=== PATIENT | male | born 1995 | race American Indian/Alaskan Native ===

== ENCOUNTER 2019-04-16 19:23 | Emergency (ER) | payer MEDICAID ==
[2019-04-16] MEDS ORDERED: EPINEPHRINE 1MG/ML AMP ONE (19:30)
[2019-04-16] MEDS ORDERED: BENADRYL 50 MG/ML ONE (19:30)
[2019-04-16] MEDS ORDERED: solu-MEDROL 125 MG ONE (19:30)
[2019-04-16] MEDS ORDERED: Sodium Chloride 0.9% 1000 ML 1,000 ML IV STA (19:31)
[2019-04-16] MEDS ORDERED: Pepcid 20 MG VIAL IV ONE ×2 (19:31→19:49)
[2019-04-16] MEDS ORDERED: EPINEPHRINE 1MG/ML AMP IM ONE (19:31)
[2019-04-16] MEDS ORDERED: BENADRYL 50 MG/ML IV ONE ×2 (19:31→19:34)
[2019-04-16] MEDS ORDERED: solu-MEDROL 125 MG IV ONE (19:33)
--- NOTE | 2019-04-16 19:48 | ERPHSYRPT ---
- History of Present Illness Time Seen by Provider: 04/16/19 19:30 Source: patient Exam Limitations: clinical condition Physician History: PATIENT COMPLAINS OF ACUTE ONSET OF GENERALIZED ITCHING AND HIVES OVER SKIN AFTER BEING STUNG BY WASP OVER LEFT FOOT. DENIES DIFFICULTY BREATHING OR SWALLOWING Timing/Duration: today Quality: itchy, painful Severity: severe Location: generalized Possible Causes: insect sting Modifying Factors: Improves With: other (NOTHING) Associated Symptoms: change in skin texture, edema Allergies/Adverse Reactions: bee venom protein (honey bee) Allergy (Verified 04/16/19 19:48) hornet venom Allergy (Verified 04/16/19 19:48) - Review of Systems Constitutional: No Symptoms Eyes: No Symptoms Ears, Nose, & Throat: No Symptoms, Throat Swelling Cardiac: Orthopnea Musculoskeletal: No Symptoms Skin: Rash, Skin Lesions Psychological: No Symptoms Endocrine: No Symptoms - Nursing Vital Signs Nursing Vital Signs: Initial Vital Signs Temperature 98.1 F 04/16/19 19:38 Pulse Rate 72 04/16/19 19:38 Respiratory Rate 22 04/16/19 19:38 Blood Pressure 159/78 04/16/19 19:38 O2 Sat by Pulse Oximetry 99 04/16/19 19:38 Pain Scale Pain Intensity 10 - Physical Exam General Appearance: mild distress Eye Exam: PERRL/EOMI Ears, Nose, Throat Exam: normal ENT inspection, TM abnormal (L), other (NO PHARYNGEAL EDEMA) Respiratory Exam: normal breath sounds Cardiovascular Exam: regular rate/rhythm, normal heart sounds Gastrointestinal/Abdomen Exam: soft, normal bowel sounds Back Exam: normal inspection Extremity Exam: normal inspection Neurologic Exam: alert, oriented x 3 Skin Exam: normal color, other (HIVES OVER ROMO) SpO2 Interpretation: normal SpO2: 98 Ordered Tests: Medication Summary Discontinued Medications Generic Name Dose Route Start Last Admin Trade Name Freq PRN Reason Stop Dose Admin Diphenhydramine HCl Confirm 04/16/19 19:30 Benadryl 50 Mg/Ml Administered 04/16/19 19:31 Dose 100 mg .ROUTE .STK-MED ONE Diphenhydramine HCl 75 mg 04/16/19 19:31 04/16/19 19:48 Benadryl 50 Mg/Ml IV 04/16/19 19:32 75 mg STAT ONE Administration Diphenhydramine HCl 25 mg 04/16/19 19:34 04/16/19 19:48 Benadryl 50 Mg/Ml IV 04/16/19 19:35 25 mg STAT ONE Administration Epinephrine HCl Confirm 04/16/19 19:30 Epinephrine 1mg/Ml Amp Administered 04/16/19 19:31 Dose 1 mg .ROUTE .STK-MED ONE Epinephrine HCl 0.3 mg 04/16/19 19:31 04/16/19 19:49 Epinephrine 1mg/Ml Amp IM 04/16/19 19:32 0.3 mg STAT ONE Administration Famotidine 20 mg 04/16/19 19:31 04/16/19 19:52 Pepcid 20 Mg Vial IV 04/16/19 19:32 20 mg STAT ONE Administration Famotidine Confirm 04/16/19 19:49 Pepcid 20 Mg Vial Administered 04/16/19 19:50 Dose 20 mg IV .STK-MED ONE Sodium Chloride 1,000 mls @ 999 mls/hr 04/16/19 19:31 04/16/19 19:52 Sodium Chloride 0.9% 1000 Ml IV 04/16/19 20:31 999 mls/hr .Q1H1M STA Administration Sodium Chloride Confirm 04/16/19 19:49 Sodium Chloride 0.9% 1000 Ml Administered 04/16/19 19:50 Dose 1,000 mls @ ud .ROUTE .STK-MED ONE Methylprednisolone Sodium Succinate Confirm 04/16/19 19:30 Solu-Medrol 125 Mg Administered 04/16/19 19:31 Dose 125 mg .ROUTE .STK-MED ONE Methylprednisolone Sodium Succinate 125 mg 04/16/19 19:33 04/16/19 19:38 Solu-Medrol 125 Mg IV 04/16/19 19:34 125 mg STAT ONE Administration - Progress Progress: improved Progress Note: 04/16/19 20:56 IV NORMAL SALINE 1 LITER/HR BENADRYL 100MG SOLUMEDROL 125MG IV, EPINEPHRINE 0.3MG 1:1000 IM Counseled pt/family regarding: diagnosis, need for follow-up - Departure Departure Disposition: Home Clinical Impression: ALLERGIC REACTION WASP STING Condition: Stable Critical Care Time: No Additional Instructions: TAKE OVER THE COUNTER BENADRYL 50MG EVERY 4 HOURS NEEDED FOR ITCHING. PREDNISONE 20MG, 2 TABLETS DAILY FOR 5 DAYS. ANTIBIOTIC AUGMENTIN 875MG TWICE DAILY FOR 10 DAYS FOR ANKLE CELLULITIS. EPIPEN 0.3MG INJECTIONS NEEDEDE FOR ONSET OF HIVES. Prescriptions: Amox Tr/Potass Clav. 875 mg [Augmentin 875-125 Tablet] 1 each PO BID #20 tablet EPINEPHrine [Epipen 0.3 MG] 0.3 mg IJ DAILY PRN PRN #2 ml PRN Reason: ALLERGIC REACTION Prednisone 20 mg [Deltasone 20 mg] 2 tab PO DAILY #10 tablet
[2019-04-16] MEDS ORDERED: Sodium Chloride 0.9% 1000 ML 1,000 ML ONE (19:49)
[2019-04-16 20:56] VITALS: BP 131/74; PULSE 78
[2019-04-16 21:00] VITALS: O2SAT 98
== END 2019-04-16 21:20 | disposition home or self-care (01) ==
LOC: ED 19:23
DX: T63.441A Toxic effect of venom of bees, accidental (unintentional), initial encounter (principal); L50.0 Allergic urticaria
CPT/HCPCS: 96360; 96372; 96374; 96375; 99284; J0171; J1200; J2930

== ENCOUNTER 2019-12-13 05:24 | Emergency (ER) | payer MEDICAID ==
[2019-12-13] MEDS ORDERED: BENADRYL 50 MG/ML IV ONE (05:45)
[2019-12-13] MEDS ORDERED: solu-MEDROL 125 MG IV ONE (05:45)
--- NOTE | 2019-12-13 05:45 | ERPHSYRPT ---
- History of Present Illness Time Seen by Provider: 12/13/19 05:39 Source: patient Exam Limitations: no limitations Patient Subjective Stated Complaint: pt states he woke up with a wasp in his trunks and it stung him on the lt thigh Triage Nursing Assessment: pt alert and oriented, answers questions approp. pt restless in bed, itching. skin warm and dry. red raised area to lt lateral thigh. Physician History: About 30 minutes ago pt was stung by a wasp on his left lateral thigh after which he began to have pruritus, nausea, vomiting x1, cough and tightness in the neck. Pt injected himself with an epi-pen about 20 minutes ago. pt denies abdominal pain, chest pain, fever. Allergies/Adverse Reactions: bee venom protein (honey bee) Allergy (Verified 04/16/19 19:48) hornet venom Allergy (Verified 04/16/19 19:48) Hx Tetanus, Diphtheria Vaccination/Date Given: Yes (November 2018) Hx Influenza Vaccination/Date Given: No Hx Pneumococcal Vaccination/Date Given: No Immunizations Up to Date: Yes Travel Risk - International Travel Have you traveled outside of the country in past 3 weeks: No Have you or anyone close to you been diagnosed with or: No Do your reside in a community with a known COVID-19 case?: Yes If Yes where:: [facility] - Coronavirus Screening Has patient experienced Coronavirus symptoms: Yes Symptoms experienced: respiratory symptoms (i.e.Cought,shortness of breath) Date of respiratory symptoms onset:: 12/13/19 (cough about 30 minutes ago.) - Review of Systems Constitutional: No Fever Ears, Nose, & Throat: Throat Swelling, No Throat Pain Respiratory: Cough Cardiac: No Chest Pain Abdominal/Gastrointestinal: Nausea, Vomiting, No Abdominal Pain Skin: Pruritis, No Rash Neurological: No Headache All Other Systems: Reviewed and Negative - Past Medical History Pertinent Past Medical History: No - Past Surgical History Past Surgical History: No - Social History Smoking Status: Former smoker Exposure to second hand smoke: No Drug Use: none Patient Lives Alone: Yes - Nursing Vital Signs Nursing Vital Signs: Initial Vital Signs Temperature 97.7 F 12/13/19 05:30 Pulse Rate 73 12/13/19 05:30 Respiratory Rate 20 12/13/19 05:30 Blood Pressure 143/77 12/13/19 05:30 O2 Sat by Pulse Oximetry 97 12/13/19 05:30 Pain Scale Pain Intensity 0 - Physical Exam General Appearance: alert Eye Exam: PERRL/EOMI Ears, Nose, Throat Exam: TMs normal, pharynx normal, moist mucous membranes Neck Exam: normal inspection Respiratory Exam: lungs clear Cardiovascular Exam: normal heart sounds Gastrointestinal/Abdomen Exam: soft, normal bowel sounds Back Exam: normal inspection Extremity Exam: swelling (mild edema and erythema surrounding a bite dorothy on left lateral thigh mid aspect.) Neurologic Exam: alert, cooperative Skin Exam: other (old healing guevara on left shoulder; old healing linear abrasions on right thigh. pt denies suicidal/homicidal thoughts. pt states these injuries occurred 1.5 months ago and since has had an inpatient community hospital stay. ), No cyanosis SpO2 Interpretation: normal SpO2: 97 O2 Delivery: Room Air - Course Nursing assessment & vital signs reviewed: Yes Ordered Tests: Active Orders 24 hr Category Date Time Status IV Insertion STAT Care 12/13/19 05:45 Ordered - Progress Progress: improved Progress Note: 12/13/19 06:10 pt states he feels better. - Departure Departure Disposition: Home Clinical Impression: allergic reaction to wasp venom Condition: Stable Critical Care Time: No Referrals: Provider,Unknown [NON-STAFF PHY W/O PRIVILEGES] - Instructions: Insect Bites and Stings (DC) Additional Instructions: Follow up with private doctor tomorrow. Forms: Work/School Release Form Prescriptions: Hydroxyzine HCl 25 mg [Atarax 25 mg] 25 mg PO Q4H PRN PRN #30 tablet PRN Reason: Itching Methylprednisolone Packet [Medrol Dosepack] 4 mg PO UD #30 packet
[2019-12-13] MEDS ORDERED: BENADRYL 50 MG/ML ONE (05:51)
[2019-12-13] MEDS ORDERED: solu-MEDROL 125 MG ONE (05:51)
[2019-12-13 07:06] VITALS: BP 141/83; PULSE 75; O2SAT 98
== END 2019-12-13 06:55 | disposition home or self-care (01) ==
LOC: ED 05:24
DX: L29.9 Pruritus, unspecified (principal); R11.2 Nausea with vomiting, unspecified; R05 Cough; M43.6 Torticollis; T63.461A Toxic effect of venom of wasps, accidental (unintentional), initial encounter; T78.49XA Other allergy, initial encounter
CPT/HCPCS: 36000; 96374; 96375; 99284; J1200; J2930